=== PATIENT | female | born 1995 | race African-American/Black ===

== ENCOUNTER → 2023-12-01 | Emergency (ER) | payer MEDICAID, OTHER ==
[~2023-12-01] VITALS: Ht 165.1 cm; Wt 68.0 kg
[~2023-12-01] MED LIST: IBUP-2029 MT
[2023-12-01 15:13] VITALS: O2SAT 99
[2023-12-01] MEDS: IBUPROFEN 600MG TABLET PO ONE (16:47)
[2023-12-01 16:48] VITALS: BP 125/61; PULSE 78; RESP 20; TEMP 98
== END ==
LOC: ER 14:45
DX: M79.644 Pain in right finger(s) (principal); Z98.890 Other specified postprocedural states; W18.39XA Other fall on same level, initial encounter; Y93.89 Activity, other specified; Y92.89 Other specified places as the place of occurrence of the external cause; Y99.8 Other external cause status
CPT/HCPCS: 29125; 73130; 81025; 99283